=== PATIENT | female | born 1955 | race Two or more races ===

== ENCOUNTER 2024-09-17 00:28 | Emergency (ER) | payer OTHER ==
[~2024-09-17] VITALS: Ht 165.1 cm; Wt 100.0 kg
[2024-09-17 00:33] VITALS: TEMP 37.1; O2SAT 100
[2024-09-17] MEDS: ALBUTEROL (0.5%) 2.5MG/0.5ML NEB HHN ONE (01:00)
[2024-09-17] MEDS ORDERED: ACETAMINOPHEN 325MG TABLET PO ONE (01:00)
[2024-09-17 01:37] LABS: CHLORIDE 102 mEq/L (98-107); POTASSIUM 4.6 mEq/L (3.5-5.1); SODIUM 138 mEq/L (136-145)
[2024-09-17 01:38] LABS: CALCIUM 9.4 mg/dL (8.7-10.4); CARBON DIOXIDE 29 mEq/L (21-32)
[2024-09-17 01:43] LABS: CREATININE 1.3 mg/dL (0.6-1.0); ETHANOL BLOOD < 10 mg/dL (<10); GLUCOSE 90 mg/dL (70-105); UREA NITROGEN BLOOD 15 mg/dL (9-23)
[2024-09-17 01:57] LABS: INR 1.2; PARTIAL THROMBOPLASTIN TIME 41.9 sec (23.4-31.0); PROTHROMBIN TIME 12.9 sec (9.6-11.0)
[2024-09-17 02:01] LABS: TROPONIN I HIGH SENSITIVITY 39 ng/L (3.0-34)
[2024-09-17 02:07] LABS: BASOPHILS % 1.4 % (0.0-2.0); EOSINOPHILS % 2.9 % (0.0-5.0); HEMOGLOBIN. 10.4 g/dL (12.0-16.0); LYMPHOCYTES % 40.9 % (20.0-50.0); MEAN CORPUSCULAR HEMOGLOBIN 30.2 pg (28.0-32.0); MEAN CORPUSCULAR HGB CONC 32.6 g/dL (31.0-37.0); MEAN CORPUSCULAR VOLUME 92.7 fL (81.0-99.0); MEAN PLATELET VOLUME 8.1 fl (7.4-10.4); MONOCYTES % 12.2 % (2.0-8.0); NEUTROPHILS % 42.6 % (40.0-76.0); PLATELET 225 x1000/uL (130-400); RED BLOOD CELL COUNT 3.46 mill/uL (4.2-5.4); RED CELL DISTRIBUTION WIDTH 13.6 % (11.6-14.6); WHITE BLOOD COUNT 3.7 x1000/uL (4.5-11.0)
[2024-09-17] MEDS ORDERED: ACETAMINOPHEN 325MG TABLET ONE ×2 (03:18)
[2024-09-17 04:45] LABS: TROPONIN I HIGH SENSITIVITY 38 ng/L (3.0-34)
[2024-09-17] MEDS ORDERED: ALBUTEROL (0.5%) 2.5MG/0.5ML NEB HHN ONE (04:52)
[2024-09-17] MEDS: IPRATROPIUM BROMIDE (0.02%) 0.5MG/2.5ML NEB HHN ONE (05:00)
[2024-09-17] MEDS ORDERED: ACET-2708 MT (06:05)
[2024-09-17] MEDS ORDERED: GUAI600T26 MT (06:05)
[2024-09-17] MEDS ORDERED: BENZ100C86 MT (07:23)
[2024-09-17 07:39] VITALS: BP 100/58; PULSE 80; RESP 18; O2SAT 100
== END 2024-09-17 07:40 | disposition home or self-care (01) ==
LOC: ER 00:28
DX: B34.9 Viral infection, unspecified (principal); R05.9 Cough, unspecified; J45.909 Unspecified asthma, uncomplicated; Z20.822 Contact with and (suspected) exposure to COVID-19
CPT/HCPCS: 80048; 80320; 83880; 85025; 85610; 85730; 84484; 36415; 71045; 93005; 99285; 87426; Z7610 ×2; A4606; G0480